=== PATIENT | female | born 1995 | race Caucasian/White ===

== ENCOUNTER 2020-02-13 08:34 | Outpatient (CLI) | payer OTHER ==
[~2020-02-13 08:34] MED LIST: ANAprox Ds 550mg TAB PO; Colace 100MG PO; DERMOPLAST TP; PRENATE ADVANCE PO
== END 2020-02-13 14:52 | disposition home or self-care (01) ==
LOC: OBS/DEL 08:34
PROVIDERS: ATTEND Obstetrics & Gynecology
DX: O26.893 Other specified pregnancy related conditions, third trimester (principal); U07.1 COVID-19; O60.03 Preterm labor without delivery, third trimester

== ENCOUNTER 2020-03-04 16:19 | Outpatient (CLI) | payer OTHER | END 2020-03-05 13:25 | disposition home or self-care (01) | LOC: OBS/DEL 16:19 | PROVIDERS: ATTEND Obstetrics & Gynecology | DX: O60.03 Preterm labor without delivery, third trimester (principal) ==

== ENCOUNTER 2020-03-23 13:58 | Inpatient (IN) | payer OTHER ==
[~2020-03-23] VITALS: Ht 170.2 cm; Wt 3.6 kg
[2020-03-25] MEDS ORDERED: PRENATAL + DHA1 EAC1 PO (08:32)
[2020-03-27] MEDS ORDERED: SIMETHICONE125 M1 PO (07:07)
[2020-03-27] MEDS ORDERED: KETO10TA2 PO (07:07)
[2020-03-27] MEDS ORDERED: DOCUSATE SODIU100 MG PO (07:07)
== END 2020-03-27 11:06 | DRG 785 ==
LOC: OBS/DEL 13:58 → LDR 03-24 05:49 → OB/GYN 03-24 05:49 → O/R 03-24 13:52 → OB/GYN 03-24 14:53
PROVIDERS: ADMIT Obstetrics & Gynecology; ATTEND Obstetrics & Gynecology
PROC: 0UB70ZZ Excision of Bilateral Fallopian Tubes, Open Approach (ICD-10-PCS; 2020-03-24)
PROC: 4A1HXCZ Monitoring of Products of Conception, Cardiac Rate, External Approach (ICD-10-PCS; 2020-03-24)
PROC: 10D00Z1 Extraction of Products of Conception, Low, Open Approach (ICD-10-PCS; principal; 2020-03-24 13:00)
DX: O62.0 Primary inadequate contractions (principal); O82 Encounter for cesarean delivery without indication; Z3A.38 38 weeks gestation of pregnancy; Z37.0 Single live birth; Z20.828 Contact with and (suspected) exposure to other viral communicable diseases; Z30.2 Encounter for sterilization